=== PATIENT | female | born 1995 | race Caucasian/White ===

== ENCOUNTER 2018-12-15 16:47 | Emergency (ER) | payer OTHER ==
[~2018-12-15] VITALS: Ht 170.2 cm; Wt 86.0 kg
[2018-12-15] MEDS ORDERED: ALEV220T22 PO (16:58)
[2018-12-15] MEDS: KETOROLAC 60 MG/2 ML VIAL (J1885) IM ONE ×2 (18:45→22:37)
[2018-12-15] MEDS ORDERED: METHOCARBAMOL 500 MG TAB PO ONE (18:45)
--- NOTE | 2018-12-15 21:23 | REPVR ---
EXAM: MR Lumbar Spine Without Contrast. EXAM DATE/TIME: 12/15/2018 7:34 PM CLINICAL HISTORY: 23 years old, female; Pain and injury or trauma and signs and symptoms; Injury history: Lifted a heavy person; Initial encounter; Sprain or strain, lumbar ligaments; Lumbago; Low back pain; Injury date: 12/15/18; Additional info: Right lower extremity numbness/tingling, right low back pain TECHNIQUE: Imaging protocol: Multiplanar magnetic resonance images of the lumbar spine without intravenous contrast. COMPARISON: No relevant prior studies available. FINDINGS: Vertebrae: The lumbar vertebral bodies are normal in height, without abnormal subluxation or acute marrow edema. No significant scoliosis. Multilevel: Degenerative disc disease is noted from L3-4 through L5-S1, with a decrease in the T2 signal intensity of the discs as well as disc bulge/osteophyte complexes. L1-L2: There is no significant narrowing of the thecal sac or neural foramina. No posterior disc herniation. L2-L3: Mild bilateral facet arthropathy. Minimal disc bulging, without significant narrowing of the thecal sac or neural foramina. L3-L4: There is a small central protrusion causing minimal narrowing of the thecal sac. Mild bilateral facet arthropathy. No significant neural foraminal narrowing bilaterally. L4-L5: Bilateral facet arthropathy. There is a small central protrusion with annular tear causing a minimal impression on the ventral thecal sac, without significant overall narrowing. Mild narrowing of the proximal left neural foramen. No significant narrowing of the right neural foramen. L5-S1: Mild disc bulging causing effacement of the anterior epidural fat, without significant narrowing of the thecal sac. Moderate left and mild right neural foraminal narrowing visualized. Bilateral facet arthropathy. Spinal cord: The distal end of the conus medullaris ends at T12-L1, normal in position. Soft tissues: No significant paraspinal swelling. IMPRESSION: 1. Degenerative changes are visualized from L2-3 through L5-S1, as detailed above. 2. Small central protrusions are identified at L3-4 and L4-5, with minimal narrowing of the thecal sac at L3-4. 3. Neural foraminal narrowing at L4-5 and L5-S1, as detailed above. Electronically signed by: Macario Obrien On 12/15/2018 21:23:30 PM
[2018-12-15 22:49] VITALS: BP 122/74
[2018-12-15] MEDS ORDERED: KETO10TAB PO (22:55)
[2018-12-15] MEDS ORDERED: ROBA500T PO (22:55)
[2018-12-15] MEDS ORDERED: VOLT1GEL15 TOP (22:57)
== END 2018-12-15 23:15 | disposition home or self-care (01) ==
LOC: M ED 16:47
DX: M51.26 Other intervertebral disc displacement, lumbar region (principal); M51.27 Other intervertebral disc displacement, lumbosacral region; M99.53 Intervertebral disc stenosis of neural canal of lumbar region; M48.061 Spinal stenosis, lumbar region without neurogenic claudication; M48.07 Spinal stenosis, lumbosacral region; M62.830 Muscle spasm of back; Z79.1 Long term (current) use of non-steroidal anti-inflammatories (NSAID); Z88.2 Allergy status to sulfonamides; Z91.040 Latex allergy status
CPT/HCPCS: 72148; 84702; 96372; 99283; J1885

== ENCOUNTER 2019-04-17 17:48 | Emergency (ER) | payer OTHER ==
[~2019-04-17] VITALS: Ht 172.7 cm; Wt 84.4 kg
[~2019-04-17 17:48] MED LIST: ALEV220T22 PO; KETO10TAB PO; ROBA500T PO; VOLT1GEL15 TOP
[2019-04-17 20:05] LABS: BASO % 0.2 % (0.0-1.0); EOS # 0.1 10^3/uL (0.0-0.5); EOS % 0.6 % (0.0-3.0); HEMOGLOBIN 14.7 g/dl (12.0-15.5); LYMPH # 1.3 10^3/uL (1.5-5.0); LYMPH % 8.6 % (24.0-44.0); MEAN CORPUSCULAR HEMOGLOBIN 29.6 pg (27.0-33.0); MEAN CORPUSCULAR HGB CONC 33.4 g/dl (32.0-36.5); MEAN CORPUSCULAR VOLUME 88.5 fl (80.0-96.0); MONO # 0.8 10^3/uL (0.0-0.8); MONO % 5.3 % (0.0-5.0); NEUTROPHILS # 12.7 10^3/uL (1.5-8.5); NEUTROPHILS % 84.8 % (36.0-66.0); PLATELET COUNT, AUTOMATED 268 10^3/uL (150-450); RED BLOOD COUNT 4.97 10^6/uL (4.00-5.40); WHITE BLOOD COUNT 14.9 10^3/uL (4.0-10.0)
[2019-04-17 20:28] LABS: ALBUMIN 4.3 GM/DL (3.2-5.2); ALT/SGPT 23 U/L (12-78); BILIRUBIN,DIRECT < 0.1 MG/DL (0.0-0.2); BILIRUBIN,TOTAL 0.3 MG/DL (0.2-1.0); BLOOD UREA NITROGEN 14 MG/DL (7-18); CALCIUM LEVEL 9.2 MG/DL (8.5-10.1); CARBON DIOXIDE LEVEL 26 MEQ/L (21-32); CHLORIDE LEVEL 107 MEQ/L (98-107); CREATININE FOR GFR 0.93 MG/DL (0.55-1.30); GLOMERULAR FILTRATION RATE > 60.0 (>60); GLUCOSE, FASTING 89 MG/DL (70-100); LIPASE 203 U/L (73-393); POTASSIUM SERUM 3.8 MEQ/L (3.5-5.1); SODIUM LEVEL 140 MEQ/L (136-145); TOTAL PROTEIN 7.8 GM/DL (6.4-8.2)
[2019-04-17] MEDS ORDERED: ISOVUE-370 76% 100ML VIAL (Q9967) As Ordered ONE (20:37)
--- NOTE | 2019-04-17 21:49 | REPVR ---
EXAM: CT Abdomen and Pelvis With Contrast EXAM DATE/TIME: 04/17/2019 8:57 PM CLINICAL HISTORY: 23 years old, female; Abdominal pain; Localized; Left upper quadrant (luq); Additional info: Luq/flank pain TECHNIQUE: Imaging protocol: Computed tomography of the abdomen and pelvis with intravenous contrast. Radiation optimization: All CT scans at this facility use at least one of these dose optimization techniques: automated exposure control; mA and/or kV adjustment per patient size (includes targeted exams where dose is matched to clinical indication); or iterative reconstruction. Contrast material: ISOVUE 370; Contrast volume: 100 ml; Contrast route: IV; COMPARISON: No relevant prior studies available. FINDINGS: Liver: Unremarkable. Gallbladder and bile ducts: Multiple gallstones without evidence of acute cholecystitis. Pancreas: Unremarkable. No ductal dilation. Spleen: Unremarkable. Adrenals: Unremarkable. Kidneys and ureters: No hydronephrosis or stones. Stomach and bowel: Stomach is unremarkable. No small bowel obstruction. Large bowel is unremarkable. Appendix: The appendix is normal. Intraperitoneal space: No pneumoperitoneum. No significant fluid collection. Vasculature: Unremarkable. Lymph nodes: No enlarged lymph nodes. Bladder: Unremarkable. Reproductive: Unremarkable as visualized. Bones/joints: No acute osseus lesion or fracture. Soft tissues: Unremarkable. IMPRESSION: 1. Multiple gallstones without evidence of acute cholecystitis. 2. No evidence of hydronephrosis, nephrolithiasis, or acute appendicitis. Electronically signed by: Monster Hull On 04/17/2019 21:48:48 PM
[2019-04-17 22:40] VITALS: BP 128/79
[2019-05-04] MEDS ORDERED: NEXP1IMP SC (15:29)
[2019-05-04] MEDS ORDERED: IBUP-1022 PO (15:29)
[2019-05-04] MEDS ORDERED: ZOFR4TAB16 PO (15:29)
== END 2019-04-17 22:47 | disposition home or self-care (01) ==
LOC: M ED 17:48
DX: K80.70 Calculus of gallbladder and bile duct without cholecystitis without obstruction (principal); Z87.891 Personal history of nicotine dependence; Z88.2 Allergy status to sulfonamides; Z91.040 Latex allergy status
CPT/HCPCS: 74177; 80048; 80076; 81001; 83690; 84702; 85025; 87086; 99284; Q9967

== ENCOUNTER 2019-05-07 14:47 | Day surgery (SDC) | payer OTHER ==
[~2019-05-07] VITALS: Ht 172.7 cm; Wt 82.6 kg
[~2019-05-07 14:47] MED LIST changes: +IBUP-1022 PO; +LR 1,000 ML IV ONE; +NEXP1IMP SC; +ZOFR4TAB16 PO
[2019-05-07] MEDS ORDERED: LIDOCAINE 2% INJ 100 MG/5 ML SDV (FOR ANES.) As Ordered ONE (15:27)
[2019-05-07] MEDS ORDERED: propofoL 200 MG/20 ML VIAL As Ordered ONE (15:27)
[2019-05-07] MEDS ORDERED: SUGAMMADEX SODIUM 500 MG/5 ML VIAL (BRIDION) As Ordered ONE (15:27)
[2019-05-07] MEDS ORDERED: dexameTHASONE 4 MG/ML 1ML VIAL (J1100) As Ordered ONE (15:27)
[2019-05-07] MEDS ORDERED: ROCURONIUM BROMIDE 50 MG/5 ML VIAL As Ordered ONE (15:27)
[2019-05-07] MEDS ORDERED: KETOROLAC 60 MG/2 ML VIAL (J1885) As Ordered ONE (15:27)
[2019-05-07] MEDS ORDERED: ONDANSETRON 4MG/2ML VIAL (J2405) As Ordered ONE ×2 (15:27→21:29)
[2019-05-07] MEDS ORDERED: fentaNYL 250 MCG/5 ML INJECTION (J3010) As Ordered ONE (15:28)
[2019-05-07] MEDS ORDERED: MIDAZOLAM INJ 2 MG/2 ML VIAL (J2250) As Ordered ONE (15:28)
[2019-05-07] MEDS ORDERED: ACETAMINOPHEN 1000MG 100ML IV BTL (OFIRMEV) (J0131 PER 10MG) As Ordered ONE (15:31)
[2019-05-07 15:35] LABS: URINE PREG TEST NEGATIVE (NEGATIVE)
[2019-05-07] MEDS ORDERED: LIDOCAINE 1% SDV INJ 30 ML VIAL As Ordered ONE (17:58)
[2019-05-07] MEDS ORDERED: BUPIVACAINE HCL 0.25% 30 ML VIAL As Ordered ONE (17:58)
[2019-05-07] MEDS ORDERED: NORC1TAB7 PO (18:00)
[2019-05-07] MEDS: AMPICILLIN SOD/SULBACTAM SOD 3 GM in D5W MINI-BAG PLUS 100 ML IV ONE ×2 (18:31→18:35)
[2019-05-07] MEDS ORDERED: FLUORESCEIN 10% (100MG/ML) 5 ML VIAL As Ordered ONE (18:49)
[2019-05-07] MEDS ORDERED: fentaNYL 100 MCG/2 ML INJECTION (J3010) As Ordered ONE ×2 (19:57→20:49)
[2019-05-07] MEDS: fentaNYL 100 MCG/2 ML INJECTION (J3010) IV PRN ×4 (20:50→21:09)
[2019-05-07] MEDS ORDERED: LR 1,000 ML IV SCH (21:00)
[2019-05-07] MEDS ORDERED: ONDANSETRON 4MG/2ML VIAL (J2405) IV PRN ×2 (21:00→21:45)
[2019-05-07] MEDS ORDERED: oxyCODONE 5MG TAB PO PRN (21:00)
[2019-05-07] MEDS ORDERED: oxyCODONE 5MG TAB As Ordered ONE (21:28)
[2019-05-07] MEDS ORDERED: MORPHINE 10 MG/ML 1ML VIAL (J2270) As Ordered ONE (21:40)
[2019-05-07] MEDS: MORPHINE 10 MG/ML 1ML VIAL (J2270) IV PRN ×2 (21:43→21:48)
[2019-05-07] MEDS ORDERED: NORCO, ANEXSIA 5/325MG TABLET (HYDROcodone/ACETAMINOPHEN) PO PRN ×2 (21:45)
[2019-05-07] MEDS ORDERED: KETOROLAC 30 MG/ML VIAL (J1885) IV PRN (21:45)
[2019-05-07 22:10] VITALS: BP 130/65
--- NOTE | 2019-05-08 07:33 | ROOPDOC ---
[facility] Report Of Operation Report of Operation DATE OF PROCEDURE: 05/07/19 PREPROCEDURE DIAGNOSES: Cholelithiasis, biliary colic. POSTPROCEDURE DIAGNOSES: Cholelithiasis, Acute Cholecystitis. PROCEDURE: Robotic Assisted Laparoscopic Cholecystectomy. SURGEON: Michael Kaur MD [employer] P[employer]: ANESTHESIA: General Anesthesia. ESTIMATED BLOOD LOSS: Approximately 20 mL. COMPLICATIONS: small capsular tear on the liver while retracting, no bleeding at end of the procedure, Laura powder placed at the area REMARKS: 24 F with ongoing intermittent right upper quadrant discomfort related to her gallstones. She was seen at the ED PROCEDURE NOTE: . DESCRIPTION OF PROCEDURE: Patient was given a dose Unasyn 3 g IV preoperatively for prophylaxis. He was brought to the operating room, laid supine on the table, compression boots placed for DVT prophylaxis. General endotracheal anesthesia started. His abdomen then prepped and draped in usual sterile fashion. Surgical timeout was performed prior to starting surgery. I entered the abdomen with a Veress needle technique above the umbilicus. Intra-abdominal placement was confirmed with saline drop technique. CO2 insufflation started to pressure 15 mmHg. Using the same incision an 8 mm robotic laparoscopic trocar was placed under direct vision a 5 mm laparoscope. The incision site was inspected for bleeding or injury and none was found. Patient was placed on a reverse Trendelenburg position roughly about 12 with the right side tilted up wards to further expose the gallbladder. Along the oblique line from the right side to the left 3 other ports were placed about 8- 10 cm apart under direct vision. The da Nayely robot tower was then positioned in place and the trochars docked onto the robotic arms. I used a probe grasped with grasper, reports bipolar grasper connected to bipolar cautery, 8 mm 30 laparoscope point and downwards, focal cautery connected to monopolar cautery and exchanged this for [place] bipolar instrument. Operative findings: His liver is noted to be smooth in contour no nodularities or lesions found, looks moderately enlarged. His gallbladder is moderately distended hard to grasp, moderately thck walled with some evidence for acute inflammation. The fundus of the gallbladder was grasped and the gallbladder was elevated superiorly exposing the neck of the gallbladder. The peritoneum overlying the area was opened up and dissected free both anteriorly and posteriorly to help with retraction of the gallbladder. The hepatocystic triangle was approached and dissected using a [place] and instrument. The cystic duct was identified coming off from the next gallbladder this was circumferentially dissected. The cystic artery was identified in its usual position medially behind a small lymph node of Calot. This was similarly circumferentially dissected off surrounding adipose tissue. We continued posterior dissection proximally at the next gallbladder until a critical view of safety was achieved whereby only the previously ident ified duct and artery coursing through the neck the gallbladder. The cystic artery was divided after placing 2 Hem-o-meliza clips. The cystic duct was divided after placing 2 Hem-o-meliza clips at the distal end. Unfortunately while retracting the gallbladder the previously placed Hem-o-meliza clip at the gallbladder and loosened up with spillage of multiple yellowish friable stones likewise bile. I regain control of the opening and completed the cholecystectomy with difficulty because of trying to maintain control of the end of the gallbladder. After this was done distally over the Endo Catch bag. Again unfortunately he had some difficulty retrieving the gallbladder. I retrieved it from the abdominal incision site which had to enlarge markedly at the gallbladder is enlarged and packed.. This was then closed with 0 Vicryl using a Bo Harrell device and it resumed laparoscopy at this time. The robot was undocked. I spent about another 30 minutes or so retrieving stones and flushing the gallbladder bed until I was satisfied that the retrieved all her most stones that has spilled. MICHAEL KAUR MD May 08, 2019 07:33
== END 2019-05-07 22:52 | disposition home or self-care (01) ==
LOC: M SDC 14:47
PROVIDERS: ATTEND Surgery
DX: K80.18 Calculus of gallbladder with other cholecystitis without obstruction (principal); Z88.2 Allergy status to sulfonamides; Z91.040 Latex allergy status; Z79.899 Other long term (current) drug therapy
CPT/HCPCS: 47562; 84703; 88304; J0131; J1100; J1885; J2250; J2270; J2405; J3010